=== PATIENT | male | born 1985 | race Caucasian/White ===

== ENCOUNTER 2017-07-17 11:58 | Emergency (ER) | payer OTHER ==
[~2017-07-17] VITALS: Ht 177.8 cm; Wt 98.0 kg
[~2017-07-17 11:58] MED LIST: AUGMENTIN875TAB PO; BENADRYL 50MG C50 MG PO; BUSPIRONE7.5 MG PO; FLUARIX QUADRIV1 INJ IM; HYDROCHLOROT12.5 MG PO; HYDROXYZ HCL50 MG PO; IMODIUM2 MG PO; LORTAB5 PO; Levaquin PO; MEDDOSEPAK PO; NAPROSYN500 MG PO; NO; PEPCID20 MG PO; RAYOS5 MG; SERTRALINE25 MG PO; SERTRALINE50 MG PO; ZOFRAN4 MG/TAB PO; ZOLOFT100 MG PO
[2017-07-17 13:15] LABS: HEMATOCRIT 45.6 % (39.0-50.0); HEMOGLOBIN 16.4 g/dl (14.0-18.0); IMMATURE GRANULOCYTES 1.2 % (0.0-1.0); MEAN CELL VOLUME 83.4 fL CALC (80.0-100.0); NEUT# 10.03 thou/uL (1.82-7.42); RED BLOOD COUNT 5.47 mill/uL (4.70-6.10); RED CELL DISTRI WIDTH 11.8 % (11.5-15.5)
[2017-07-17 13:32] LABS: ALBUMIN 4.6 g/dL (3.2-5.0); ALKALINE PHOSPHATASE 46 u/l (38-126); ANION GAP 18 (6-22 (CALC)); BILIRUBIN, TOTAL 1.3 mg/dL (0.0-1.4); BUN 10 mg/dL (9-20); BUN/CREATININE RATIO 9 (12-20 (CALC)); CALCIUM 9.7 mg/dL (8.4-10.2); CARBON DIOXIDE 24 mmol/l (22-30); CHLORIDE 106 mmol/l (95-108); CREATININE 1.1 mg/dL (0.7-1.3); GFR > 60 ML/MIN (>=60 (CALC)); GFR FOR AFR.AMER. > 60 ML/MIN (>=60 (CALC)); GLUCOSE 101 mg/dL (75-110); POTASSIUM 4.1 mmol/l (3.5-5.1); SGOT/AST 24 u/l (17-59); SGPT/ALT 50 u/l (21-72); SODIUM 143 mmol/l (137-146); TOTAL PROTEIN 7.9 g/dL (6.3-8.2)
[2017-07-17 14:41] VITALS: BP 132/92
== END 2017-07-17 14:35 | disposition left against medical advice (07) | DRG 395 ==
LOC: ED 11:58
PROVIDERS: Emergency Medicine
DX: T18.128A Food in esophagus causing other injury, initial encounter (principal); Z91.19 Patient's noncompliance with other medical treatment and regimen; X58.XXXA Exposure to other specified factors, initial encounter; Y92.009 Unspecified place in unspecified non-institutional (private) residence as the place of occurrence of the external cause
CPT/HCPCS: J1610